=== PATIENT | female | born 1960 | race Caucasian/White ===

== ENCOUNTER 2023-08-17 11:25 | Inpatient (IN) | payer OTHER, SELFPAY ==
[2023-08-17] VITALS (9 sets, daily range): BP systolic 132–158; BP diastolic 72–91; PULSE 54–96; RESP 16–18; TEMP 36.7–37.3; O2SAT 90–99; BMI 39.1; BMI 39.6
--- NOTE | 2023-08-17 11:51 | ECG_ITS ---
[facility] Test Date: 2023-08-17 Pat Name: Shauna Angel Department: Room: Gender: Female Ambulette Driver: : 1960 Requested By: Francisco Schilling Order Number: [id number] Buddy MD: Kyaw Finney M.D. Measurements Intervals [place] Rate: 69 P: 49 CT: 178 QRS: 19 QRSD: 111 T: 35 QT: 388 QTc: 416 Interpretive Statements SINUS RHYTHM WITH SINUS ARRHYTHMIA Normal EKG Electronically Signed On 08-18-2023 16:42:25 FILM PRINTER by Kyaw Finney M.D. [id number]
--- NOTE | 2023-08-17 11:51 | XRR_ITS ---
PROCEDURE INFORMATION: Exam: XR Chest Exam date and time: 08/17/2023 12:29 PM Age: 63 years old Clinical indication: Cough and dyspnea; Additional info: Dyspnea/cough TECHNIQUE: Imaging protocol: Radiologic exam of the chest. Views: 1 view. COMPARISON: CR XR chest 1V [id number] 07/06/2017 2:06 AM FINDINGS: Lungs: Unremarkable. No consolidation. Pleural spaces: Unremarkable. No pleural effusion. No pneumothorax. Heart/Mediastinum: Unremarkable. No cardiomegaly. Bones/joints: Unremarkable. XR/XR chest 1V portable [id number] IMPRESSION: No acute findings.
[2023-08-17 12:34] LABS: Add Urine Microscopic? NO; Charge for UA Resulting for Rev
--- NOTE | 2023-08-17 12:34 | CT_ITS ---
WS: [id number] CT ABDOMEN PELVIS TECHNIQUE: Noncontrast CT of the abdomen and pelvis with coronal and sagittal reformatted images. CLINICAL INFORMATION: Abdominal pain COMPARISON: None. DLP: 1020.[address] scans at [facility] use at least one of these dose optimization techniques: automated e xposure control; mA and/or kV adjustment per patient size (includes targeted exams where dose is matc hed to clinical indication); or iterative reconstruction. FINDINGS: Diffuse inflammatory stranding and edema about the pancreas more prominent about the pancre atic head compatible with acute pancreatitis. Recommend correlation with pancreatic enzymes. No evide nce of drainable abscess or fluid collection. Inflammatory stranding and edema in the upper abdomen. Small amount of fluid about the duodenum and RIGHT hepatic lobe. Diffuse thickening of the duodenum a nd proximal jejunum likely reactive. Prominent gallstone measuring 2.1 cm. No significant bile duct d ilatation. No intrahepatic biliary ductal dilatation. Minimal induration about the gallbladder likely due to reactive changes from pancreatitis. Adrenal glands are normal. No obstructing renal or ureteral calculi. No hydronephrosis in either kidn ey. Normal caliber abdominal aorta. Small amount of free fluid in the pelvis. Lung bases are well aerated. Slight bibasilar atelectasis. Small esophageal hiatal hernia. IMPRESSION: 1. Inflammatory stranding and edema involving the pancreas compatible with acute pancreatitis. Recom mend correlation with pancreatic enzymes. 2. Large gallstone in the gallbladder measuring 2.1 cm. Small amount of induration in the gallbladde r fossa likely reactive due to pancreatitis. 3. No intrahepatic biliary ductal dilatation. 4. No drainable fluid collection or abscess. 5. Diffuse reactive thickening of the duodenum and proximal jejunum Notified Francisco Bird DO at 08/17/2023 3:15 PM.
[2023-08-17 12:45] LABS: Bilirubin Urine Neg (Negative); Blood Urine Neg (Negative); Glucose Urine UA Norm (Normal); Ketones Urine Negative (Negative); Leukocyte Esterase Urine Negative (Negative); Nitrate Urine Negative (Negative); Protein Urine Neg (Negative); Specific Gravity, Urine 1.005 (1.005-1.030); Urine Appearance Clear (CLEAR); Urine Color Yellow (Yellow); Urobilinogen Urine Neg (Negative); pH Urine 5 (5-7)
[2023-08-17 12:46] LABS: Basophils % 0.3 %; Eosinophils # 0.1 10^3/uL (0.0-0.8); Eosinophils % 0.5 %; Hematocrit 38.9 % (36-47); Lymphocytes # 0.9 10^3/uL (0.8-4.8); Mean Corpuscular HGB Conc 33.2 g/dL (30-55); Mean Corpuscular Hemoglobin 29.3 pg (27-33); Mean Corpuscular Volume 88.2 fl (85-98); Mean Platelet Volume 9.7 fL (7.4-10.4); Monocytes # 0.3 10^3/uL (0.2-0.9); Monocytes % 2.2 %; Neutrophils # 13.54 10^3/uL (1.8-7.7); Neutrophils % 90.6 %; Nucleated Red Blood Cells % 0 %; Platelet Count 230 10^3/cmm (157-399); Red Blood Count 4.41 10^6/uL (3.85-5.65); White Blood Count 14.94 10^3/uL (3.29-11.43)
[2023-08-17 13:01] LABS: Alanine Aminotransferase 229 U/L (0-33); Albumin Level 4.4 g/dL (3.5-5.2); Alkaline Phosphatase 143 U/L (35-105); Anion Gap 16.4 (5-19); Aspartate Amino Transferase 308 U/L (0-32); Blood Urea Nitrogen 19 mg/dL (8-23); Calcium 9.8 mg/dL (8.5-10.5); Carbon Dioxide 27 mmol/L (22-29); Chloride 100 mmol/L (98-107); Glucose 166 mg/dL (65-115); Osmolality Calculated 296 mOsm/kg (285-295); Potassium 3.4 mmol/L (3.5-5.1); Sodium 140 mmol/L (136-145); Total Bilirubin 1.3 mg/dL (0.15-1.2); Total Protein 7.4 g/dL (6.6-8.7)
[2023-08-17] MEDS: ondansetron 2 mg/ML SDV 2 mL 4 MG IVP ×2 (13:15→20:20)
[2023-08-17 15:01] LABS: Lipase 11677 U/L (13-60)
--- NOTE | 2023-08-17 15:13 | MRR_ITS ---
PROCEDURE INFORMATION: Exam: MR Abdomen Without Contrast Exam date and time: 08/17/2023 4:01 PM Age: 63 years old Clinical indication: Abdominal pain; Other: Pancreatitis; Additional info: Cholelithiasis, pancreatitis TECHNIQUE: Imaging protocol: Magnetic resonance imaging of the abdomen without contrast. COMPARISON: CT abdomen pelvis con [id number] 08/17/2023 2:28 PM FINDINGS: Liver: No acute findings. Gallbladder and bile ducts: Cholelithiasis without evidence of acute cholecystitis. No common duct dilatation or filling defect. Pancreas: Peripancreatic inflammatory changes. No loculated collection. Spleen: No splenomegaly. Adrenal glands: No mass. Kidneys and ureters: No hydronephrosis. Stomach and bowel: Visualized stomach and intestines are unremarkable. Intraperitoneal space: No free fluid. Vasculature: No abdominal aortic aneurysm. Bones/joints: Unremarkable. Soft tissues: Unremarkable. MR/MR MRCP 11559 IMPRESSION: Acute pancreatitis without abscess. No obstructing choledocholithiasis appreciated.
[2023-08-17] MEDS: morphine 4 mg/mL SDV 1 mL IM (15:23)
--- NOTE | 2023-08-17 15:23 | ED_ITS ---
HPI - Abdominal Pain 2 General: Chief Complaint: Abdominal Pain Stated Complaint: Abd Pain n/v Time Seen by Provider: 08/17/23 11:45 Source: patient Mode of arrival: ambulatory History of Present Illness: 60-year-old female presents emergency ro om complaint of left upper quadrant epigastric pain radiating across into her right upper quadrant and into her back. Began after she ate some pizza last night she has a history of reflux. She had several episodes of Emesis at home with no hemoptysis. No dysuria urgency or frequency no hematuria. MD elicited complaint: abdominal pain Onset (ago): hour(s) Pain Consistency: constant Location: Epigastric, LUQ and RUQ Severity: severe Quality: sharp Radiation: back Exacerbating factors: eating Relieving factors: nothing Associated Symptoms: Reports bloating, GI cramping, nausea, poor appetite and vomiting; Denies anorexia, belching, change in bowel habits, change in stool character, chills, coffee ground emesis, constipation, diarrhea, dyspepsia, dysuria, excessive flatus, fever(s), heartburn, hematochezia, hematuria, hematemesis, fecal incontinence, loose stools, melena and syncope Review of Systems 2 Const: Denies: fever(s) or chills Card: Denies: chest pain or syncope Resp: Denies: dyspnea GI: Reports: nausea, vomiting, bloating and GI cramping; Denies: abdominal pain, hematemesis, coffee ground emesis, heartburn, diarrhea, constipation, belching, excessive flatus, fecal incontinence, change in bowel habits, change in stool character, hematochezia or melena : Denies: dysuria, urinary frequency, urinary urgency or hematuria Musc: Denies: neck pain or back pain Skin/Breast: Denies: rash PFSH ED 2 PFSH: Medical History (Updated 08/28/23 @ 11:33 by Francisco Bird DO) Chronic GERD Arthritis AIME positive Closed right ankle fracture Hypertension Hypothyroidism Surgical History (Updated 08/18/23 @ 14:47 by Andre Banerjee MD) Previous section H/O vaginal hysterectomy Status post ORIF of fracture of ankle Family History (Updated 08/18/23 @ 14:47 by Andre Banerjee MD) Other Allergies Social History (Updated 08/18/23 @ 14:48 by Andre Banerjee MD) Smoking and tobacco/nicotine status: never used tobacco/nicotine Alcohol intake: never Substance/Drug Use: never Caregiver/support person: Yes Lives independently: Yes Household members: family Housing: House Marital status: Highest education level completed: High School Graduate Physical Exam 2 Const: GENERAL APPEARANCE: cooperative and comfortable O RIENTATION/CONSCIOUSNESS: Yes awake, Yes oriented to person, Yes oriented to place and Yes oriented to time HENMT: COMMON NORMALS: normocephalic, atraumatic and hearing grossly normal bilaterally HEAD & SCALP: normocephalic and atraumatic Resp: COMMON NORMALS: normal respiratory effort, No retractions, No use of accessory muscles and clear to auscultation bilaterally AUSCULTATION: clear to auscultation bilaterally Cardio: COMMON NORMALS: regular rate, regular rhythm and No murmurs present (Cardio) RATE: regular rate RHYTHM: regular rhythm GI: COMMON NORMALS: No hepatosplenomegaly present AUSCULTATION: Yes normoactive bowel sounds PALPATION: Yes Tenderness to palpation present (GI) (Epigastric left upper quadrant mild in the right upper quadrant), No Guarding due to palpation present (GI) and Yes No hepatosplenomegaly present Extremity: COMMON NORMALS: normal to inspection, capillary refill normal, no clubbing, cyanosis or edema, no calf tenderness and no pedal edema Neuro: SENSORIUM/ORIENTATION: Yes oriented to person, Yes oriented to place and Yes oriented to time Skin: COMMON NORMALS: no rashes or lesions noted GENERAL SKIN EXAM: no rashes or lesions noted Course 2 Vital Signs: Vital signs: Vital Signs Temperature 97.4 F L 08/20/23 15:30 Pulse Rate 90 08/20/23 15:30 Respiratory Rate 18 08/20/23 15:30 Blood Pressure 162/92 08/20/23 15:30 Pulse Oximetry 94 08/20/23 15:30 Oxygen Delivery Me thod Room Air 08/20/23 11:36 Oxygen Flow Rate 2 08/18/23 00:00 Fraction of Inspir ed Oxygen 21 08/18/23 20:50 MDM - Abdominal Pain Medical Decision Making Acute choledocholithiasis MRCP shows no stone in the duct suspect this stone had just passed will admit started on IV antibiotics fluids discussed with hospitalist orders written Medical Records I reviewed the patient's medical records. Lab Data I reviewed the patient's lab results. 08/20/23 05:03 08/20/23 05:03 Labs/Radiology: Radiology Impressions Chest X-Ray 08/17/23 11:51 IMPRESSION: No acute findings. Cholangiopancreatography MRI 08/17/23 15:13 IMPRESSION: Acute pancreatitis without abscess. No obstructing choledocholithiasis appreciated. Laboratory Results WBC 14.94 10^3/uL (3.29-11.43) H 08/17/23 12:28 RBC 4.41 10^6/uL (3.85-5.65) 08/17/23 12:28 Hgb 12.90 g/dL (11.27-16.99) 08/17/23 12:28 Hct 38.9 % (36-47) 08/17/23 12: MCV 88.2 fl (85-98) 08/17/23 12:28 MCH 29.3 pg (27-33) 08/17/23 12:28 MCHC 33.2 g/dL (30-55) 08/17/23 12:28 RDW 14.0 % (12.1-15.1) 08/17/23 12:28 Plt Count 230 10^3/cmm (157-399) 08/17/23 12:28 MPV 9.7 fL (7.4-10.4) 08/17/23 12: Neut % (Auto) 90.6 % 08/17/23 12: Lymph % (Auto) 6.0 % 08/17/23 12:28 [place] % (Auto) 2.2 % 08/17/23 12:28 Eos % (Auto) 0.5 % 08/17/23 12:28 Baso % (Auto) 0.3 % 08/17/23 12:28 Neut # (Auto) 13.54 10^3/uL (1.8-7.7) H 08/17/23 12:28 Lymph # (Auto) 0.9 10^3/uL (0.8-4.8) 08/17/23 12:28 [place] # (Auto) 0.3 10^3/uL (0.2-0.9) 08/17/23 12:28 Eos # (Auto) 0.1 10^3/uL (0.0-0.8) 08/17/23 12:28 Baso # (Auto) 0.0 10^3/uL (0.0-0.1) 08/17/23 12:28 Nucleated RBC % (auto) 0 % 08/17/23 12:28 Nucleated RBCs # 0.0 /100WBC 08/17/23 12:28 Sodium 140 mmol/L (136-145) 08/17/23 12:28 Potassium 3.4 mmol/L (3.5-5.1) L 08/17/23 12:28 Chloride 100 mmol/L (98-107) 08/17/23 12:28 Carbon Dioxide 27 mmol/L (22-29) 08/17/23 12:28 Anion Gap 16.4 (5-19) 08/17/23 12:28 BUN 19 mg/dL (8-23) 08/17/23 12:28 Creatinine 0.6 mg/dL (0.5-0.9) 08/17/23 12:28 GFR Calculation 101.0 mL/min (90-130) 08/17/23 12:28 Glucose 166 mg/dL (65-115) H 08/17/23 12:28 Calculated Osmolality 296 mOsm/kg (285-295) H 08/17/23 12:28 Calcium 9.8 mg/dL (8.5-10.5) 08/17/23 12:28 Iron 78 ug/dL (37-145) 08/17/23 12:28 TIBC 257 mcg/dl 08/17/23 12:28 % Saturation 30.3 % (20-50) 08/17/23 12:28 Unsat Iron Binding 179 ug/dL (112-347) 08/17/23 12:28 Total Bilirubin 1.3 mg/dL (0.15-1.2) H 08/17/23 12:28 AST 308 U/L (0-32) H 08/17/23 12:28 ALT 229 U/L (0-33) H 08/17/23 12:28 Alkaline Phosphatase 143 U/L (35-105) H 08/17/23 12:28 Total Protein 7.4 g/dL (6.6-8.7) 08/17/23 12:28 Albumin 4.4 g/dL (3.5-5.2) 08/17/23 12:28 Globulin 3.0 g/dL (1.3-4.6) 08/17/23 12:28 Triglycerides 148 mg/dL (0-150) 08/17/23 12:38 Lipase 64600 U/L (13-60) H 08/17/23 12:28 Vitamin B12 1359 pg/mL (232-1245) H 08/17/23 12:28 TSH 1.71 uIU/mL (0.27-4.20) 08/17/23 12:28 Urine Color Yellow (Yellow) 08/17/23 12:10 Urine Appearance Clear (CLEAR) 08/17/23 12:10 Urine pH 5 (5-7) 08/17/23 12:10 Ur Specific [place] 1.005 (1.005-1.030) 08/17/23 12:10 Urine Protein Neg (Negative) 08/17/23 12:10 Urine Glucose (UA) Norm (Normal) 08/17/23 12:10 Urine Ketones Negative (Negative) 08/17/23 12:10 Urine Blood Neg (Negative) 08/17/23 12:10 Urine Nitrate Negative (Negative) 08/17/23 12:10 Urine Bilirubin Neg (Negative) 08/17/23 12:10 Urine Urobilinogen Neg mg/dL (Negative) 08/17/23 12:10 Ur Leukocyte Esterase Negative (Negative) 08/17/23 12:10 All radiology interpretation(s) finalized by discharge Discharge Plan Discharge Patient Disposition: Admitted As Inpatient Admit Provider: Andre Banerjee Clinical Impression: Pancreatitis, Choledocholithiasis, Transaminitis, Hyperbilirubinemia, Hypokalemia, Leukocytosis Condition: Stable Discharge Orders: Discharge Order (Routine); Ordered 08/20/23 Ordered By: Andre Banerjee Discharge Diet: Advance as tolerated, As Directed and Clear Liquid Discharge Activity: Resume usual activity and Increase activity as tolerated Coding Level of Care Code ED Pmo Consultant for Naty Milton
[2023-08-17] MEDS: sodium chloride 0.9% 1,000 ML 999 ML IV ×2 (15:53→20:21)
[2023-08-17] MEDS: meropenem 1,000 MG in sodium chloride 0.9% (plus) 50 ML 100 MG IV (16:46)
[2023-08-17 18:38] LABS: Triglycerides 148 mg/dL (0-150)
--- NOTE | 2023-08-17 19:35 | P.HP_ITS ---
Providers/Chief Complaint 2 Admitting Physician: Andre Banerjee MD Primary Care Provider: Marilee Bustillos DO Chief Complaint: Abd Pain n/v History of Present Illness Shauna Angel is a 63 year old female with past medical history of hypertension, hypothyroidism who presents to the ER with abdominal pain which is bandlike in upper abdomen radiating to lower abdomen along with nausea and vomiting for the last 2 days. Patient states she has been having increased dyspepsia for last 2 to 3 weeks. Patient denies any diarrhea or sick contacts. Denies any hematemesis or melena. In the ER she was found to have mild leukocytosis, elevated bilirubin and transaminitis along with elevated lipase consistent with pancreatitis. CT abdomen pelvis was done which showed gallstones, obstructive choledocholithiasis was ruled out on MRCP. Hospitalist service was consulted for further evaluation and management. Review of Systems 2 General: Reports: 10 or more systems reviewed and unremarkable except in HPI and below Const: Denies: fever(s), chills, body aches, change in appetite, change in weight, malaise, night sweats, diaphoresis, change in sleep pattern, daytime sleepiness or snoring Eyes: Denies: change in vision, blurry vision, photophobia, eye discomfort or eye discharge ENMT: Denies: throat pain, enlarged tonsils, hoarseness, mouth pain, oral sores, dry mouth, tinnitus, nasal congestion or post nasal drip Card: Denies: chest pain, palpitations, irregular heart rhythm, edema, swelling of feet/ankles, lightheadedness, syncope, pre-syncope, dyspnea on exertion, orthopnea, leg pain with exertion or acrocyanosis Resp: Denies: dyspnea, productive cough, non-productive cough, wheezing, stridor, pain on inspiration, change in phlegm color, hemoptysis or chest congestion GI: Denies: abdominal pain, nausea, vomiting, hematemesis, coffee ground emesis, dysphagia, heartburn, diarrhea, constipation, bloating, GI cramping, change in bowel habits, pain on defecation, hematochezia or melena : Denies: flank pain, dysuria, urinary frequency, urinary urgency, urinary hesitancy, nocturia or hematuria Musc: Denies: neck pain, back pain, extremity pain, joint pain, joint swelling, joint redness, joint stiffness or limited range of motion Neuro: Denies: headache(s), numbness in extremities, weakness in extremities, sensory changes, lack of coordination, difficulty walking, frequent falls, dizziness, vertigo, confusion, Slurred speech present, difficulty communicating thoughts or seizure-like activity Psych: Denies: anxiety, depression, mood swings, panic attacks, hopelessness or irritability Endo: Denies: polyuria, polydipsia, tired all the time, cold intolerance, excessive sweating, flushing or heat intolerance Gaurav/Lymph: Denies: easy bruising or easy bleeding All/Imm: Denies: tongue swelling, facial swelling or acute wheezing Medications/Allergies Home Medications Medication Instructions Recorded Confirmed Last Taken Type ascorbic acid (vitamin C) 500 mg 500 mg PO DAILY 08/17/23 08/17/23 Unknown History tablet (Vitamin C) celecoxib 200 mg capsule (Celebrex) 200 mg PO BID 08/17/23 08/17/23 Unknown History cholecalciferol (vitamin D3) 125 125 mcg PO DAILY 08/17/23 08/17/23 Unknown History mcg (5,000 unit) tablet (Vitamin D3) cyanocobalamin (vitamin B-12) 1,000 mcg PO DAILY 08/17/23 08/17/23 Unknown History 1,000 mcg tablet (Vitamin B-12) esomeprazole magnesium 20 mg 40 mg PO QAM 08/17/23 08/17/23 Unknown History capsule,delayed release (Nexium 24HR) hydrochlorothiazide 25 mg tablet 25 mg PO QAM 08/17/23 08/17/23 Unknown History hydrocodone 7.5 mg-acetaminophen 1 - 2 tab PO Q6H PRN Pain 08/17/23 08/17/23 Unknown History 325 mg tablet levothyroxine 100 mcg tablet 100 mcg PO QAM 08/17/23 08/17/23 Unknown History losartan 100 mg tablet 100 mg PO QAM 08/17/23 08/17/23 Unknown History magnesium 250 mg tablet 250 mg PO DAILY 08/17/23 08/17/23 Unknown History omega-3 fatty acids 1,000 mg 2,000 mg PO DAILY 08/17/23 08/17/23 Unknown History capsule turmeric 400 mg capsule 400 mg PO DAILY 08/17/23 08/17/23 Unknown History Allergies Allergy/AdvReac Type Severity Reaction Status Date / Time bupropion [From Wellbutrin] Allergy Unknown unknown Verified 08/17/23 11:31 venlafaxine [From Effexor] Allergy Unknown unknown Verified 08/17/23 11:31 ciprofloxacin [From Ciprodex] Allergy Unknown Verified 08/17/23 14:58 dexamethasone [From Ciprodex] Allergy Unknown Verified 08/17/23 14:58 meloxicam Allergy ALGY-Hives Verified 08/17/23 20:34 Penicillins Allergy Unknown Verified 08/17/23 14:58 Sulfa (Sulfonamide Allergy Unknown Verified 08/17/23 14:58 Antibiotics) PFSH Acute 2 PFSH: Medical History (Updated 08/18/23 @ 14:47 by Andre Banerjee MD) Chronic GERD Arthritis AIME positive Closed right ankle fracture Hypertension Hypothyroidism Surgical History (Updated 08/18/23 @ 14:47 by Andre Banerjee MD) Previous section H/O vaginal hysterectomy Status post ORIF of fracture of ankle Family History (Updated 08/18/23 @ 14:47 by Andre Banerjee MD) Other Allergies Social History (Updated 08/18/23 @ 14:48 by Andre Banerjee MD) Smoking and tobacco/nicotine status: never used tobacco/nicotine Alcohol intake: never Substance/Drug Use: never Caregiver/support person: Yes Lives independently: Yes Household members: family Housing: House Marital status: Highest education level completed: High School Graduate Vitals/I&O/Wt Last Vital Signs Temp 98.1 F 08/17/23 11:27 Pulse 71 08/17/23 18:11 Resp 16 08/17/23 18:11 BP 134/72 08/17/23 18:11 Pulse Ox 92 08/17/23 18:11 O2 Del Method Room Air 08/17/23 11:27 Weight last 48 hrs Weight 113.398 kg Physical Exam 2 Narrative: General: In distress because of abdominal pain and nausea , AO x3 HEENT: PERRLA, pupils bilaterally equal and reactive Chest: Normal vesicular breath sounds, no added sounds, equal good air entry bilaterally CVS: S1-S2 regular, no murmurs, no tachycardia, no gallops, no rubs Abdomen: Soft, generalized tenderness more so in epigastric area, bowel sounds sluggish Neuro: No focal deficits, no facial deformity, AO x3, power 5/5 in all limbs Data 08/18/23 05:44 08/18/23 05:44 A&P Assessment and plan (1) Pancreatitis: Most likely in setting of passed gallstone. Patient does have hyperbilirubinemia along with transaminitis. MRCP ruled out obstructive choledocholithiasis. Will plan to consult surgery for possible need of cholecystectomy. Conservative treatment. Keep patient NPO. IV hydration with normal saline. Protonix daily, Zofran as needed. Leukocytosis also most likely in setting of inflammation. For now we will continue with meropenem given in the ER. If patient remains hemodynamically stable and afebrile for next 24 hours we will discontinue antibiotics. Morphine 1 mg every 4 hours as needed for pain. If needed will add Dilaudid. (2) Choledocholithiasis: (3) Transaminitis: (4) Hyperbilirubinemia: (5) Hypertension: Goal blood pressure less than 140/90 mmHg. For now we will hold off on antihypertensives. (6) Hypokalemia: Replace with 40 mill equivalents of IV. Monitor daily. (7) Leukocytosis: Plan Hypothyroidism: Continue with home dose of levothyroxine. Check TSH. Did discuss with patient that there is a high risk of biliary obstruction with current gallstone leading to worsening of pancreatitis. In that case patient would need ERCP which is not available in our facility though she does not require it right now as MRCP ruled out obstructive choledocholithiasis. Full code NPO. Protonix for PUD prophylaxis Lovenox for DVT prophylaxis Attestations 2 Medical Necessity Statement*: Admission for more than 2 midnights for management of pancreatitis, choledocholithiasis Diagnoses Pancreatitis K85.90 Choledocholithiasis K80.50 Transaminitis R74.01 Hyperbilirubinemia E80.6 Hypertension I10 Hypokalemia E87.6 Leukocytosis D72.829
[2023-08-17] MEDS: enoxaparin 40 mg/0.4 mL Syringe SUBCUT (20:20)
[2023-08-17] MEDS: pantoprazole 40 mg SDV IVP (20:20)
[2023-08-17] MEDS: lanolin oint 7 gm 1 APPLIC TOPICAL (20:20)
[2023-08-17] MEDS: sodium chloride 0.9% 1,000 ML 100 ML IV (20:21)
[2023-08-17 20:32] LABS: Iron 78 ug/dL (37-145); Percent Saturation 30.3 % (20-50); Thyroid Stimulating Hormone 1.71 uIU/mL (0.27-4.20); Total Iron Binding Capacity 257 mcg/dl; Unsaturated Iron Binding 179 ug/dL (112-347); Vitamin B12 1359 pg/mL (232-1245)
[2023-08-17] MEDS: morphine 4 mg/mL SDV 1 mL 2 MG IVP (20:36)
--- NOTE | 2023-08-17 21:01 | PC.NURSE ---
Patient c/o abdominal pain 10/10 not relieved by PRN Morphine. Dr. Selby ordered PRN Dilaudid.
[2023-08-17] MEDS: HYDROmorphone 1 mg/mL INJ 1 mL 0.4 MG IVP (21:07)
--- NOTE | 2023-08-17 22:29 | PC.NURSE ---
Addendum entered by Lexy Leach RN 08/17/23 23:20: GI cocktail ordered. Original Note: Dr. Selby notified that patient received the Dilaudid and is still c/o pain 8/10 and nausea and she is also asking for something for gas.
[2023-08-18] VITALS (17 sets, daily range): BP systolic 138–149; BP diastolic 78–86; PULSE 80–96; RESP 13–20; TEMP 36.4–37.3; O2SAT 90–96; BMI 41.1
[2023-08-18] MEDS: lidocaine 2% viscous 15 ML, aluminum-mag hydrox-simethicon 30 ML, sucralfate oral liq 1 GM PO (00:09)
[2023-08-18] MEDS: HYDROmorphone 1 mg/mL INJ 1 mL 0.4 MG IVP ×2 (01:28→05:43)
[2023-08-18] MEDS: sodium chloride 0.9% 1,000 ML 100 ML IV ×2 (05:43→18:32)
[2023-08-18] MEDS: ondansetron 2 mg/ML SDV 2 mL 4 MG IVP ×2 (05:43→21:24)
[2023-08-18 05:53] LABS: Basophils % 0.2 %; Eosinophils # 0.1 10^3/uL (0.0-0.8); Eosinophils % 0.4 %; Hematocrit 34.5 % (36-47); Lymphocytes # 0.6 10^3/uL (0.8-4.8); Lymphocytes % 4.7 %; Mean Corpuscular HGB Conc 33.6 g/dL (30-55); Mean Corpuscular Hemoglobin 29.4 pg (27-33); Mean Corpuscular Volume 87.3 fl (85-98); Mean Platelet Volume 9.9 fL (7.4-10.4); Monocytes # 0.4 10^3/uL (0.2-0.9); Monocytes % 2.7 %; Neutrophils # 12.05 10^3/uL (1.8-7.7); Neutrophils % 91.7 %; Nucleated Red Blood Cells % 0 %; Platelet Count 185 10^3/cmm (157-399); Red Blood Count 3.95 10^6/uL (3.85-5.65); Red Cell Distribution Width 14.6 % (12.1-15.1); White Blood Count 13.14 10^3/uL (3.29-11.43)
--- NOTE | 2023-08-18 06:13 | PC.NURSE ---
Patient is asking for a cream for lower back pain. Dr. Selby notified.
[2023-08-18 06:18] LABS: Chol HDL Ratio 2.89 mg/dL (0.0-4.40); Cholesterol 159 mg/dL (0-200); HDL Cholesterol 55 mg/dL (60-100); LDL Cholesterol Calculated 87 mg/dL (50-129); LDL HDL Ratio 1.58 RATIO (0.00-3.22); Lactic Sepsis W/Reflex 0.8 mmol/L (0.5-2.2); Triglycerides 86 mg/dL (0-150)
[2023-08-18 06:19] LABS: Alanine Aminotransferase 217 U/L (0-33); Albumin Level 3.8 g/dL (3.5-5.2); Alkaline Phosphatase 134 U/L (35-105); Anion Gap 14.6 (5-19); Aspartate Amino Transferase 145 U/L (0-32); Blood Urea Nitrogen 19 mg/dL (8-23); Calcium 8.5 mg/dL (8.5-10.5); Carbon Dioxide 24 mmol/L (22-29); Chloride 105 mmol/L (98-107); Creatinine Clr Calc Pharmacy 150.7328; Globulin 2.9 g/dL (1.3-4.6); Glomerular Filtration Rate 124.6 mL/min (90-130); Glucose 128 mg/dL (65-115); Osmolality Calculated 294 mOsm/kg (285-295); Phosphorus 3.2 mg/dL (2.5-4.5); Potassium 3.6 mmol/L (3.5-5.1); Sodium 140 mmol/L (136-145); Total Bilirubin 0.9 mg/dL (0.15-1.2); Total Protein 6.7 g/dL (6.6-8.7)
[2023-08-18 06:22] LABS: Estmated Average Glucose 108; Hemoglobin A1C 5.4 % (4.0-6.0)
[2023-08-18 06:56] LABS: Folate Level > 20.0 ng/mL (4.8-37.3)
--- NOTE | 2023-08-18 10:46 | PC.CHAP ---
Pastoral Care Encounter/Spiritual Assessment Type of Contact [] Declined flavor maker visit [] Patient/Family/Request visit [] Outpatient visit [] Follow-up visit [] Physician referral [] Code/Alert [x] Routine visit [] Staff referral [] Actively dying [] Patient sleeping [] Family support [] [] Out of room [] Palliative care [] [x] Receiving care in room [] Pre-surgical visit [] Trauma [] Long length of stay [] ICU visit [] Other: Relational/Emotional Strength [x] Patient feels connected with others/family/visitors/staff [] Distress [] Loneliness/isolation [] Abandonment Spirituality of Patient [x] Person of Genna [] Attends Tenriism of their Genna [x] Believes in Prayer [] Reads Bible or Sikhism materials [] There are Spiritual issues to be addressed Body Shop Supervisor Interventions [x] Prayer [x] Active listening [x] Non-anxious presence [x] Spiritual/emotional support [] Crisis/trauma care [x] Spiritual counseling [] Bereavement support [] Provided bereavement packet [] Provided Bible/devotional materials [] Provided toy/stuffed animal, coloring book to patient or family member [] Provided Communion [] Anointing/[place] [] Salvation [x] Completed spiritual assessment [] Other: Impact on Illness or Injury [] Angry [] Fearful [] Anxious [] Often cries [] Exhaustion [] Unable to work [] Unable to attend sikhism [] Unable to walk/stand [] Unable to read [] Unable to drive [] Unable to eat/drink [] Unable to sleep [] Unable to be with family [] Patient intubated [] Other: Summary in some pain well need forother examation by doctor this is been going on for years not suer when he well go home or what needs to done Time spent with patient 10 mins
[2023-08-18] MEDS: HYDROmorphone 1 mg/mL INJ 1 mL 0.2 MG IVP ×4 (11:45→21:22)
[2023-08-18] MEDS: meropenem 1,000 MG in sodium chloride 0.9% (plus) 50 ML 100 MG IV ×2 (11:51→17:49)
--- NOTE | 2023-08-18 14:51 | P.PN_ITS ---
Subjective 2 Subjective: No acute events overnight. Patient has remained hemodynamically stable and afebrile. States abdominal pain is better but still there. Dilaudid seems to be helping more than morphine. No further vomiting but is nauseous. Has no appetite. Family member at bedside. Vitals/I&O/Wt Last Vital Signs Temp 98.7 F 08/18/23 12:00 Pulse 83 08/18/23 12:00 Resp 16 08/18/23 12:00 BP 149/84 08/18/23 12:00 Pulse Ox 93 08/18/23 12:00 O2 Del Method Room Air 08/18/23 07:25 O2 Flow Rate 2 08/18/23 00:00 08/17/23 08/18/23 08/18/23 22:59 06:59 14:59 Intake Total 1000 / 1000 936.667 / 1936.667 Balance 1000 / 1000 936.667 / 1936.667 Weight last 48 hrs Weight 118.898 kg Weight 118.926 kg Weight 114.872 kg Weight 113.398 kg Physical Exam 2 Narrative: General: No acute distress, AO x 3 HEENT: PERRLA, pupils bilaterally equal and reactive Chest: Normal vesicular breath sounds, no added sounds, equal good air entry bilaterally CVS: S1-S2 regular, no murmurs, no tachycardia, no gallops, no rubs Abdomen: Soft, generalized tenderness more so in epigastric area, bowel sounds sluggish Neuro: No focal deficits, no facial deformity, AO x3, power 5/5 in all limbs Data 08/18/23 05:44 08/18/23 05:44 Micro: Microbiology 08/17/23 17:39 Blood Culture - Preliminary Blood SPECIMEN COLLECTED 08/17/23 15:50 Blood Culture - Preliminary Blood SPECIMEN COLLECTED A&P Assessment and plan (1) Pancreatitis: Most likely in setting of passed gallstone. Patient does have hyperbilirubinemia along with transaminitis. MRCP ruled out obstructive choledocholithiasis. Will plan to consult surgery for possible need of cholecystectomy. Conservative treatment. Continue keeping NPO. Will give a trial of clear liquid in next 24 hours. IV hydration with normal saline. Protonix daily, Zofran as needed. Leukocytosis also most likely in setting of inflammation. For now we will continue with meropenem given in the ER. If patient remains hemodynamically stable and afebrile for next 24 hours we will discontinue antibiotics. Switch to Dilaudid 0.2 every 3 hours as needed. (2) Choledocholithiasis: (3) Transaminitis: (4) Hyperbilirubinemia: (5) Hypertension: Goal blood pressure less than 140/90 mmHg. For now we will hold off on antihypertensives. (6) Hypokalemia: Resolved. Will continue to monitor. (7) Leukocytosis: Plan Hypothyroidism: Continue with home dose of levothyroxine. TSH appreciated. Did discuss with patient that there is a high risk of biliary obstruction with current gallstone leading to worsening of pancreatitis. In that case patient would need ERCP which is not available in our facility though she does not require it right now as MRCP ruled out obstructive choledocholithiasis. Full code NPO. Protonix for PUD prophylaxis Lovenox for DVT prophylaxis Attestations 2 Medical Necessity Statement*: Requires further hospitalization for management of gallstone pancreatitis while patient is unable to maintain oral intake, obstructive cholelithiasis ruled out. Diagnoses Pancreatitis K85.90 Choledocholithiasis K80.50 Transaminitis R74.01 Hyperbilirubinemia E80.6 Hypertension I10 Hypokalemia E87.6 Leukocytosis D72.829
[2023-08-18] MEDS: trolamine salicylate 10% 141 gm Cream 1 APPLIC TOPICAL (17:48)
[2023-08-18] MEDS: pantoprazole 40 mg SDV IVP (20:05)
[2023-08-18] MEDS: enoxaparin 40 mg/0.4 mL Syringe SUBCUT (20:05)
[2023-08-19] VITALS (16 sets, daily range): BP systolic 137–169; BP diastolic 81–89; PULSE 78–98; RESP 14–20; TEMP 36.4–36.8; O2SAT 90–93; BMI 41.7
[2023-08-19] MEDS: trolamine salicylate 10% 141 gm Cream 1 APPLIC TOPICAL ×3 (00:11→17:55)
[2023-08-19] MEDS: acetaminophen 325 mg Tablet 650 MG PO ×3 (00:11→20:32)
[2023-08-19] MEDS: meropenem 1,000 MG in sodium chloride 0.9% (plus) 50 ML 100 MG IV ×3 (02:31→17:56)
[2023-08-19] MEDS: HYDROmorphone 1 mg/mL INJ 1 mL 0.2 MG IVP ×6 (02:31→20:32)
[2023-08-19] MEDS: sodium chloride 0.9% 1,000 ML 100 ML IV ×3 (05:08→23:40)
[2023-08-19] MEDS: ondansetron 2 mg/ML SDV 2 mL 4 MG IVP ×2 (09:47→18:04)
[2023-08-19] MEDS: bisacodyl 5 mg Tablet 10 MG PO (10:31)
[2023-08-19 10:52] LABS: Basophils % 0.1 %; Eosinophils % 0.2 %; Lymphocytes # 0.8 10^3/uL (0.8-4.8); Lymphocytes % 5.2 %; Mean Corpuscular HGB Conc 33.1 g/dL (30-55); Mean Corpuscular Hemoglobin 29.3 pg (27-33); Mean Corpuscular Volume 88.4 fl (85-98); Mean Platelet Volume 9.5 fL (7.4-10.4); Monocytes # 0.5 10^3/uL (0.2-0.9); Monocytes % 3.5 %; Neutrophils # 13.29 10^3/uL (1.8-7.7); Neutrophils % 90.4 %; Nucleated Red Blood Cells % 0 %; Platelet Count 177 10^3/cmm (157-399); Red Blood Count 3.62 10^6/uL (3.85-5.65); Red Cell Distribution Width 14.6 % (12.1-15.1); White Blood Count 14.72 10^3/uL (3.29-11.43)
[2023-08-19 11:16] LABS: Alanine Aminotransferase 103 U/L (0-33); Albumin Level 3.6 g/dL (3.5-5.2); Alkaline Phosphatase 112 U/L (35-105); Anion Gap 13.5 (5-19); Aspartate Amino Transferase 38 U/L (0-32); Blood Urea Nitrogen 16 mg/dL (8-23); Carbon Dioxide 26 mmol/L (22-29); Chloride 103 mmol/L (98-107); Globulin 2.8 g/dL (1.3-4.6); Glomerular Filtration Rate 124.6 mL/min (90-130); Glucose 120 mg/dL (65-115); Osmolality Calculated 290 mOsm/kg (285-295); Potassium 3.5 mmol/L (3.5-5.1); Sodium 139 mmol/L (136-145); Total Bilirubin 0.7 mg/dL (0.15-1.2); Total Protein 6.4 g/dL (6.6-8.7)
--- NOTE | 2023-08-19 13:13 | P.PN_ITS ---
Subjective 2 Subjective: No acute events overnight. Patient has been taking Dilaudid as per scheduled. States abdominal pain is slightly better, does complain of nausea around taking pain medications. Not feeling hungry. States abdominal pain is better but complaining of heaviness and pain in the back. Walking around in the room. Has remained hemodynamically stable and afebrile on room air. Blood work appreciated. Vitals/I&O/Wt Last Vital Signs Temp 97.5 F L 08/19/23 11:32 Pulse 89 08/19/23 11:32 Resp 18 08/19/23 12:19 BP 137/81 08/19/23 11:32 Pulse Ox 90 08/19/23 11:32 O2 Del Method Room Air 08/19/23 08:00 O2 Flow Rate 2 08/18/23 00:00 FiO2 21 08/18/23 20:50 08/18/23 08/19/23 08/19/23 22:59 06:59 14:59 Intake Total 1175 / 1225 1050 / 2275 50 / 50 Balance 1175 / 1225 1050 / 2275 50 / 50 Weight last 48 hrs Weight 120.769 kg Weight 120.769 kg Weight 118.898 kg Weight 118.926 kg Weight 114.872 kg Physical Exam 2 Narrative: General: No acute distress, AO x 3 HEENT: PERRLA, pupils bilaterally equal and reactive Chest: Normal vesicular breath sounds, no added sounds, equal good air entry bilaterally CVS: S1-S2 regular, no murmurs, no tachycardia, no gallops, no rubs Abdomen: Soft, generalized tenderness more so in epigastric area, bowel sounds sluggish Neuro: No focal deficits, no facial deformity, AO x3, power 5/5 in all limbs Data 08/19/23 10:41 08/19/23 10:41 Micro: Microbiology 08/17/23 17:39 Blood Culture - Preliminary Blood NEGATIVE TO DATE 08/17/23 15:50 Blood Culture - Preliminary Blood NEGATIVE TO DATE A&P Assessment and plan (1) Pancreatitis: Most likely in setting of passed gallstone. Patient does have hyperbilirubinemia along with transaminitis. But resolving. Hyperbilirubinemia has resolved. Transaminitis trending down. As transaminitis and hyperbilirubinemia is resolving for now we will hold off on surgical consultation. Patient most likely would need cholecystectomy going forward once pancreatitis settles down. MRCP ruled out obstructive choledocholithiasis. Conservative treatment. Will start on clear liquid diet trial. IV hydration with normal saline. Protonix daily, Zofran as needed. Leukocytosis also most likely in setting of inflammation. For now we will continue with meropenem given in the ER. If patient remains hemodynamically stable and afebrile for next 24 hours we will discontinue antibiotics. Continue with Dilaudid 0.2 mg but will change frequency to every 4 hours as needed. Patient agreeable. (2) Choledocholithiasis: (3) Transaminitis: (4) Hyperbilirubinemia: (5) Hypertension: Goal blood pressure less than 140/90 mmHg. For now we will hold off on antihypertensives. (6) Hypokalemia: Resolved. Will continue to monitor. (7) Leukocytosis: Plan Hypothyroidism: Continue with home dose of levothyroxine. TSH appreciated. Did discuss with patient that there is a high risk of biliary obstruction with current gallstone leading to worsening of pancreatitis. In that case patient would need ERCP which is not available in our facility though she does not require it right now as MRCP ruled out obstructive choledocholithiasis. Full code NPO. Protonix for PUD prophylaxis Lovenox for DVT prophylaxis Attestations 2 Medical Necessity Statement*: Requires further hospitalization for management of gallstone pancreatitis while trial of clear liquid diet is done. Diagnoses Pancreatitis K85.90 Choledocholithiasis K80.50 Transaminitis R74.01 Hyperbilirubinemia E80.6 Hypertension I10 Hypokalemia E87.6 Leukocytosis D72.829
[2023-08-19] MEDS: lidocaine 5% Patch 1 PATCH TOPICAL ×2 (14:29→22:39)
[2023-08-19] MEDS: pantoprazole 40 mg SDV IVP (20:31)
[2023-08-19] MEDS: enoxaparin 40 mg/0.4 mL Syringe SUBCUT (20:32)
[2023-08-19] MEDS: HYDROmorphone 1 mg/mL INJ 1 mL 0.5 MG IVP (21:55)
[2023-08-20] MEDS: ondansetron 2 mg/ML SDV 2 mL 4 MG IVP (00:36)
[2023-08-20] MEDS: trolamine salicylate 10% 141 gm Cream 1 APPLIC TOPICAL (00:37)
[2023-08-20 02:08] VITALS: RESP 18
[2023-08-20] MEDS: HYDROmorphone 1 mg/mL INJ 1 mL IVP ×2 (02:08→06:19)
[2023-08-20] MEDS: meropenem 1,000 MG in sodium chloride 0.9% (plus) 50 ML 100 MG IV (02:09)
[2023-08-20 05:13] LABS: Basophils % 0.2 %; Eosinophils % 0.2 %; Hematocrit 31.2 % (36-47); Lymphocytes % 5.7 %; Mean Corpuscular HGB Conc 33.3 g/dL (30-55); Mean Corpuscular Hemoglobin 29.3 pg (27-33); Mean Corpuscular Volume 87.9 fl (85-98); Mean Platelet Volume 9.3 fL (7.4-10.4); Monocytes # 0.8 10^3/uL (0.2-0.9); Monocytes % 4.7 %; Neutrophils % 88.4 %; Nucleated Red Blood Cells % 0 %; Platelet Count 181 10^3/cmm (157-399); Red Blood Count 3.55 10^6/uL (3.85-5.65); Red Cell Distribution Width 14.2 % (12.1-15.1); White Blood Count 16.75 10^3/uL (3.29-11.43)
[2023-08-20 05:39] LABS: Alanine Aminotransferase 75 U/L (0-33); Albumin Level 3.5 g/dL (3.5-5.2); Alkaline Phosphatase 99 U/L (35-105); Anion Gap 13.2 (5-19); Aspartate Amino Transferase 23 U/L (0-32); Blood Urea Nitrogen 13 mg/dL (8-23); Calcium 7.8 mg/dL (8.5-10.5); Carbon Dioxide 23 mmol/L (22-29); Chloride 104 mmol/L (98-107); Glomerular Filtration Rate 161.2 mL/min (90-130); Glucose 123 mg/dL (65-115); Osmolality Calculated 285 mOsm/kg (285-295); Potassium 3.2 mmol/L (3.5-5.1); Sodium 137 mmol/L (136-145); Total Bilirubin 0.9 mg/dL (0.15-1.2); Total Protein 6.5 g/dL (6.6-8.7)
[2023-08-20 06:00] VITALS: PULSE 90
[2023-08-20 06:19] VITALS: RESP 18
[2023-08-20] MEDS: levothyroxine 100 mcg Tablet PO (06:19)
[2023-08-20 08:04] VITALS: BP 161/95; PULSE 85; RESP 17; TEMP 37.6; O2SAT 92
[2023-08-20] MEDS: lidocaine 5% Patch 1 PATCH TOPICAL (09:00)
[2023-08-20] MEDS: acetaminophen 325 mg Tablet 650 MG PO (09:02)
[2023-08-20 11:36] VITALS: BP 162/92; PULSE 90; RESP 18; TEMP 36.3; O2SAT 94
[2023-08-20] MEDS: HYDROcodone-acetaminophen 5-325 mg Tablet 1 TAB PO (12:51)
--- NOTE | 2023-08-20 13:05 | P.DS_ITS ---
Discharge Providers Date of Admission: 08/17/23 18:54 Date of Discharge: August 20, 2023 Attending Provider at Admission: Andre Banerjee MD Attending Provider at Discharge: Andre Banerjee MD Primary Care Provider: Marilee Mendez DO Diagnoses at Discharge Discharge Diagnosis (1) Pancreatitis: Status: Acute (2) Choledocholithiasis: Status: Acute (3) Transaminitis: Status: Acute (4) Hyperbilirubinemia: Status: Acute (5) Hypertension: Status: Inactive (6) Hypokalemia: Status: Acute (7) Leukocytosis: Status: Acute Reason for Visit Reason for Visit: Abd Pain n/v Hospital Course Hospital Course Shauna Angel is a 63 year old female with past medical history of hypertension, hypothyroidism who presents to the ER with abdominal pain which is bandlike in upper abdomen radiating to lower abdomen along with nausea and vomiting for the last 2 days. Patient states she has been having increased dyspepsia for last 2 to 3 weeks. Patient denies any diarrhea or sick contacts. Denies any hematemesis or melena. In the ER she was found to have mild leukocytosis, elevated bilirubin and transaminitis along with elevated lipase consistent with pancreatitis. CT abdomen pelvis was done which showed gallstones, obstructive choledocholithiasis was ruled out on MRCP. Hospitalist service was consulted for further evaluation and management. Patient was admitted for further evaluation and management of acute pancreatitis thought to be secondary to gallstones. She was started on conservative treatment with IV hydration and kept NPO. Gradually she was started on clear liquid diet which she tolerated well. She has been tolerating clear liquid diet well for 24 hours. Her transaminitis gradually resolved. She has been discharged hemodynamically stable condition advised to continue clear liquid diet for next few days and advance gradually to mechanical soft and regular diet within next 2 weeks. Her antihypertensives for now have been withheld. She states that her blood pressures daily at home and maintain a blood pressure diary and follow-up with a primary care provider within next 2 weeks for further adjustment of antihypertensives. She is also to follow-up with surgeon as an outpatient for possible cholecystectomy given concerns for choledocholithiasis leading to pancreatitis within next 2 to 3 weeks. Discharge plan discussed in detail with patient and patient's spouse at bedside. All the questions were answered. Physical Exam Narrative: General: No acute distress, AO x 3 HEENT: PERRLA, pupils bilaterally equal and reactive Chest: Normal vesicular breath sounds, no added sounds, equal good air entry bilaterally CVS: S1-S2 regular, no murmurs, no tachycardia, no gallops, no rubs Abdomen: Soft, generalized tenderness more so in epigastric area, bowel sounds sluggish Neuro: No focal deficits, no facial deformity, AO x3, power 5/5 in all limbs Discharge Data Studies Completed and Pending Completed Studies During Hospitalization Category Date Time Status CT abdomen pelvis wo con [id number] Stat Cat Scan 08/17/23 12:34 Completed XR chest 1V portable [id number] Stat Exams 08/17/23 11:51 Completed MR MRCP [id number] Stat MRI 08/17/23 15:13 Completed Pending at discharge Category Date Time Status Blood Culture Routine Lab 08/17/23 17:39 Results Radiology Impressions Chest X-Ray 08/17/23 11:51 IMPRESSION: No acute findings. Cholangiopancreatography MRI 08/17/23 15:13 IMPRESSION: Acute pancreatitis without abscess. No obstructing choledocholithiasis appreciated. Laboratory Results WBC 16.75 10^3/uL (3.29-11.43) H 08/20/23 05:03 RBC 3.55 10^6/uL (3.85-5.65) L 08/20/23 05:03 Hgb 10.40 g/dL (11.27-16.99) L 08/20/23 05:03 Hct 31.2 % (36-47) L 08/20/23 05:03 MCV 87.9 fl (85-98) 08/20/23 05:03 MCH 29.3 pg (27-33) 08/20/23 05:03 MCHC 33.3 g/dL (30-55) 08/20/23 05:03 RDW 14.2 % (12.1-15.1) 08/20/23 05:03 Plt Count 181 10^3/cmm (157-399) 08/20/23 05:03 MPV 9.3 fL (7.4-10.4) 08/20/23 05:03 Neut % (Auto) 88.4 % 08/20/23 05:03 Lymph % (Auto) 5.7 % 08/20/23 05:03 [place] % (Auto) 4.7 % 08/20/23 05:03 Eos % (Auto) 0.2 % 08/20/23 05:03 Baso % (Auto) 0.2 % 08/20/23 05:03 Neut # (Auto) 14.80 10^3/uL (1.8-7.7) H 08/20/23 05:03 Lymph # (Auto) 1.0 10^3/uL (0.8-4.8) 08/20/23 05:03 [place] # (Auto) 0.8 10^3/uL (0.2-0.9) 08/20/23 05:03 Eos # (Auto) 0.0 10^3/uL (0.0-0.8) 08/20/23 05:03 Baso # (Auto) 0.0 10^3/uL (0.0-0.1) 08/20/23 05:03 Nucleated RBC % (auto) 0 % 08/20/23 05:03 Nucleated RBCs # 0.0 /100WBC 08/20/23 05:03 Sodium 137 mmol/L (136-145) 08/20/23 05:03 Potassium 3.2 mmol/L (3.5-5.1) L 08/20/23 05:03 Chloride 104 mmol/L (98-107) 08/20/23 05:03 Carbon Dioxide 23 mmol/L (22-29) 08/20/23 05:03 Anion Gap 13.2 (5-19) 08/20/23 05:03 BUN 13 mg/dL (8-23) 08/20/23 05:03 Creatinine 0.4 mg/dL (0.5-0.9) L 08/20/23 05:03 GFR Calculation 161.2 mL/min (90-130) H 08/20/23 05:03 Glucose 123 mg/dL (65-115) H 08/20/23 05:03 Estimat Average Glucose 108 08/18/23 05:44 Hemoglobin A1c 5.4 % (4.0-6.0) 08/18/23 05:44 Calculated Osmolality 285 mOsm/kg (285-295) 08/20/23 05:03 Lactic Acid 0.8 mmol/L (0.5-2.2) 08/18/23 05:44 Calcium 7.8 mg/dL (8.5-10.5) L 08/20/23 05:03 Phosphorus 3.2 mg/dL (2.5-4.5) 08/18/23 05:44 Magnesium 2.0 mg/dL (1.7-2.3) 08/18/23 05:44 Iron 78 ug/dL (37-145) 08/17/23 12:28 TIBC 257 mcg/dl 08/17/23 12:28 % Saturation 30.3 % (20-50) 08/17/23 12:28 Unsat Iron Binding 179 ug/dL (112-347) 08/17/23 12:28 Total Bilirubin 0.9 mg/dL (0.15-1.2) 08/20/23 05:03 AST 23 U/L (0-32) 08/20/23 05:03 ALT 75 U/L (0-33) H 08/20/23 05:03 Alkaline Phosphatase 99 U/L (35-105) 08/20/23 05:03 Total Protein 6.5 g/dL (6.6-8.7) L 08/20/23 05:03 Albumin 3.5 g/dL (3.5-5.2) 08/20/23 05:03 Globulin 3.0 g/dL (1.3-4.6) 08/20/23 05:03 Triglycerides 86 mg/dL (0-150) 08/18/23 05:44 Cholesterol 159 mg/dL (0-200) 08/18/23 05:44 LDL Cholesterol, Calc 87 mg/dL (50-129) 08/18/23 05:44 HDL Cholesterol 55 mg/dL (60-100) L 08/18/23 05:44 LDL/HDL Ratio 1.58 RATIO (0.00-3.22) 08/18/23 05:44 Cholesterol/HDL Ratio 2.89 mg/dL (0.0-4.40) 08/18/23 05:44 Lipase 48564 U/L (13-60) H 08/17/23 12:28 Vitamin B12 1359 pg/mL (232-1245) H 08/17/23 12:28 Folate > 20.0 ng/mL (4.8-37.3) 08/18/23 05:44 TSH 1.71 uIU/mL (0.27-4.20) 08/17/23 12:28 Urine Color Yellow (Yellow) 08/17/23 12:10 Urine Appearance Clear (CLEAR) 08/17/23 12:10 Urine pH 5 (5-7) 08/17/23 12:10 Ur Specific [place] 1.005 (1.005-1.030) 08/17/23 12:10 Urine Protein Neg (Negative) 08/17/23 12:10 Urine Glucose (UA) Norm (Normal) 08/17/23 12:10 Urine Ketones Negative (Negative) 08/17/23 12:10 Urine Blood Neg (Negative) 08/17/23 12:10 Urine Nitrate Negative (Negative) 08/17/23 12:10 Urine Bilirubin Neg (Negative) 08/17/23 12:10 Urine Urobilinogen Neg mg/dL (Negative) 08/17/23 12:10 Ur Leukocyte Esterase Negative (Negative) 08/17/23 12:10 Vitals Last Vital Signs Temp 97.4 F L 08/20/23 11:36 Pulse 90 08/20/23 11:36 Resp 18 08/20/23 11:36 BP 162/92 08/20/23 11:36 Pulse Ox 94 08/20/23 11:36 O2 Del Method Room Air 08/20/23 11:36 O2 Flow Rate 2 08/18/23 00:00 FiO2 21 08/18/23 20:50 Discharge Plan Discharge Patient Disposition: Home Condition: Stable Prescriptions: New pantoprazole [Protonix] 40 mg tablet,delayed release (DR/EC) 40 mg PO QAM Qty: 30 0RF cefadroxil 500 mg capsule 500 mg PO BID Qty: 10 0RF ondansetron 4 mg tablet,disintegrating 4 mg PO DAILY PRN (Reason: nausea and vomiting) 4 Days Qty: 20 0RF Continued Celebrex 200 mg Capsule 200 mg PO BID Fish Oil Concentrate 1,000 mg Capsule 2,000 mg PO DAILY Vitamin B-12 1,000 mcg Tablet 1,000 mcg PO DAILY levothyroxine 100 mcg Tablet 100 mcg PO QAM Vitamin C 500 mg Tablet 500 mg PO DAILY Neal 7.5-325 mg Tablet 1 - 2 tab PO Q6H PRN (Reason: Pain) magnesium 250 mg Tablet 250 mg PO DAILY Vitamin D3 125 mcg (5,000 unit) Tablet 125 mcg PO DAILY turmeric 400 mg Capsule 400 mg PO DAILY Held losartan 100 mg Tablet 100 mg PO QAM Hold Instructions: Resume on 08/27/23. Discontinued hydrochlorothiazide 25 mg Tablet 25 mg PO QAM Nexium 24HR 20 mg Capsule,Delayed Release(Dr/Ec) 40 mg PO QAM Discharge Orders: Discharge Order (Routine); Ordered 08/20/23 Ordered By: Andre Banerjee Referrals: Marilee Mendez DO [Primary Care Provider] - (Please call Tuesday to schedule an appointment with Dr. Mendez.) Shay Wild MD [Physician] - 3 weeks Discharge Diet: Advance as tolerated, As Directed and Clear Liquid Discharge Activity: Resume usual activity and Increase activity as tolerated Patient Instructions: Opioid Safety Activity Restrictions/Additional Instructions: Please continue with clear liquid diet for next few days advancing to a softer and then regular diet within next 2 weeks. Please continue to take multiple small meals. You can use Zofran as needed for nausea. Nexium has been switched over to Protonix. Do not take hydrochlorothiazide for now. Hold off on losartan for next 1 week. Please check your blood pressure daily at home maintain a blood pressure diary and follow-up with your primary care provider with a blood pressure diary for further adjustment of antihypertensives. Discharge Attestations Time Spent in Discharge Care*: greater than 30 min Quality Metrics Clinical Quality Measures [ No reported AMI, CVA or VTE this stay] Coding Level of Care Code Acute Code for g Fwd Diagnoses Pancreatitis K85.90 Choledocholithiasis K80.50 Transaminitis R74.01 Hyperbilirubinemia E80.6 Hypertension I10 Hypokalemia E87.6 Leukocytosis D72.829
[2023-08-20 15:30] VITALS: BP 162/92; PULSE 90; RESP 18; TEMP 36.3; O2SAT 94
== END 2023-08-20 15:32 | disposition home or self-care (01) | DRG 440 ==
LOC: ER 15:26 → MEDSURG 18:54
PROVIDERS: Admitting Provider Student in an Organized Health Care Education/Training Program; Emergency Provider Family Medicine; PCP Family Medicine; Visit Provider Student in an Organized Health Care Education/Training Program
DX: K85.10 Biliary acute pancreatitis without necrosis or infection (principal); R74.01 Elevation of levels of liver transaminase levels; K21.9 Gastro-esophageal reflux disease without esophagitis; I10 Essential (primary) hypertension; E03.9 Hypothyroidism, unspecified; M19.90 Unspecified osteoarthritis, unspecified site; E87.6 Hypokalemia
CPT/HCPCS: 36415; 71045; 74176; 74181; 80053; 80061; 81003; 82607; 82746; 83036; 83540; 83550; 83605; 83690; 83735; 84100; 84443; 84478; 85025; 87040; 93005; 94660; 94664; 96361; 96365; 96372; 96375; 99285; C9113; J1170; J1650; J2185; J2270; J2405; J7030